=== PATIENT | female | born 1935 | race Caucasian/White ===

== ENCOUNTER → 2016-07-19 | Outpatient (CLI) | payer MEDICARE, OTHER | LOC: KOH-I 13:13 | DX: M54.2 Cervicalgia (principal); M25.511 Pain in right shoulder; M50.322 Other cervical disc degeneration at C5-C6 level | CPT/HCPCS: 72040; 73030 ==

== ENCOUNTER → 2016-07-28 | Outpatient (CLI) | payer MEDICARE, OTHER | LOC: KOH-I 10:21 | DX: I65.22 Occlusion and stenosis of left carotid artery (principal); I65.23 Occlusion and stenosis of bilateral carotid arteries | CPT/HCPCS: 93880 ==

== ENCOUNTER → 2021-01-19 | Outpatient (CLI) | payer MEDICARE, OTHER | LOC: MAMO 01-07 15:00 | DX: Z12.31 Encounter for screening mammogram for malignant neoplasm of breast (principal); Z85.3 Personal history of malignant neoplasm of breast | CPT/HCPCS: 77063; 77067 ==

== ENCOUNTER 2021-06-26 16:41 | Emergency (ER) | payer MEDICARE, OTHER ==
[2021-06-26] MEDS ORDERED: HYDROCODON-ACE1 EAC4 PO (22:16)
== END 2021-06-26 22:50 | disposition home or self-care (01) ==
LOC: ER1 16:41
DX: S82.831A Other fracture of upper and lower end of right fibula, initial encounter for closed fracture (principal); S82.842A Displaced bimalleolar fracture of left lower leg, initial encounter for closed fracture; S39.012A Strain of muscle, fascia and tendon of lower back, initial encounter; S93.401A Sprain of unspecified ligament of right ankle, initial encounter; I10 Essential (primary) hypertension; W19.XXXA Unspecified fall, initial encounter; Y92.009 Unspecified place in unspecified non-institutional (private) residence as the place of occurrence of the external cause
CPT/HCPCS: 29505; 51702; 72131; 72170; 73610; 73630; 99284

== ENCOUNTER → 2021-07-27 | Outpatient (CLI) | payer MEDICARE, OTHER ==
[~2021-07-27] MED LIST: HYDROCODON-ACE1 EAC4 PO
== END ==
LOC: KOH-I 13:57
DX: S82.842A Displaced bimalleolar fracture of left lower leg, initial encounter for closed fracture (principal); W19.XXXA Unspecified fall, initial encounter
CPT/HCPCS: 73610

== ENCOUNTER → 2021-08-17 | Outpatient (CLI) | payer MEDICARE, OTHER | LOC: KOH-I 13:07 | DX: S82.832G Other fracture of upper and lower end of left fibula, subsequent encounter for closed fracture with delayed healing (principal) | CPT/HCPCS: 73610 ==

== ENCOUNTER 2021-09-20 13:35 | Observation (INO) | payer MEDICARE, OTHER ==
[~2021-09-20] VITALS: Ht 157.5 cm; Wt 63.5 kg
[2021-09-20 15:55] LABS: HEMOGLOBIN 13.4 gm/dl (12.3-15.3); RED BLOOD COUNT 4.31 M/UL (4.00-5.10); WHITE BLOOD COUNT 5.8 K/UL (4.5-11.0)
[2021-09-20 17:27] LABS: BUN/CREATININE RATIO 21 (0-10)
[2021-09-20] MEDS ORDERED: HYDROCHLOROTHIA25 MG PO (19:41)
[2021-09-20] MEDS ORDERED: CELEXA20 MG PO (19:41)
[2021-09-20] MEDS ORDERED: CALTRATE 600 +1 EAC1 PO (19:42)
[2021-09-20] MEDS ORDERED: LOSARTAN POTAS100 MG PO (19:42)
[2021-09-21 04:18] LABS: HEMOGLOBIN 11.2 gm/dl (12.3-15.3); RED BLOOD COUNT 3.66 M/UL (4.00-5.10); WHITE BLOOD COUNT 5.4 K/UL (4.5-11.0)
[2021-09-21] MEDS ORDERED: LIDOCAINE PAIN1 EACH TP (09:58)
[2021-09-21] MEDS ORDERED: HYDROCODON-ACE1 EAC4 PO (09:58)
== END 2021-09-21 14:21 | disposition home or self-care (01) ==
LOC: ER1 13:35 → MED SURG 4 18:06 → CDU 18:06 → MED SURG 4 19:20
PROVIDERS: Emergency Medicine; Internal Medicine; ADMIT Family Medicine
DX: M16.12 Unilateral primary osteoarthritis, left hip (principal); M47.816 Spondylosis without myelopathy or radiculopathy, lumbar region; M48.061 Spinal stenosis, lumbar region without neurogenic claudication; M47.817 Spondylosis without myelopathy or radiculopathy, lumbosacral region; M48.07 Spinal stenosis, lumbosacral region; E87.1 Hypo-osmolality and hyponatremia; R11.2 Nausea with vomiting, unspecified; I16.0 Hypertensive urgency; G89.29 Other chronic pain; F32.A Depression, unspecified; I10 Essential (primary) hypertension; Z87.81 Personal history of (healed) traumatic fracture; Z79.899 Other long term (current) drug therapy
CPT/HCPCS: 71045; 72131; 73502; 80048; 80053; 81001; 82436; 82550; 82553; 83930; 83935; 84133; 84300; 84439; 84443; 84484; 85025; 87086; 93005; 93971; 96374; 96375; 97161; 99285; G0378; J2270; J2405

== ENCOUNTER → 2021-10-12 | Outpatient (CLI) | payer MEDICARE, OTHER ==
[~2021-10-12] MED LIST changes: +CALTRATE 600 +1 EAC1 PO; +CELEXA20 MG PO; +HYDROCHLOROTHIA25 MG PO; +LIDOCAINE PAIN1 EACH TP; +LOSARTAN POTAS100 MG PO
== END ==
LOC: KOH-I 12:49
DX: S82.832P Other fracture of upper and lower end of left fibula, subsequent encounter for closed fracture with malunion (principal)
CPT/HCPCS: 73610

== ENCOUNTER → 2021-11-23 | Outpatient (CLI) | payer MEDICARE, OTHER | LOC: KOH-I 12:46 | DX: S82.832D Other fracture of upper and lower end of left fibula, subsequent encounter for closed fracture with routine healing (principal) | CPT/HCPCS: 73610 ==